=== PATIENT | female | born 1975 | race Two or more races ===

== ENCOUNTER 2023-02-02 06:10 | Day surgery (SDC) | payer OTHER ==
[2023-02-02] MEDS ORDERED: PROTONIX20 MG PO (08:13)
== END 2023-02-02 10:45 | disposition home or self-care (01) ==
LOC: AMB-ENDOS 06:10
PROVIDERS: ATTEND Surgery
DX: K29.70 Gastritis, unspecified, without bleeding (principal); B96.81 Helicobacter pylori [H. pylori] as the cause of diseases classified elsewhere; K44.9 Diaphragmatic hernia without obstruction or gangrene; R10.13 Epigastric pain; E66.09 Other obesity due to excess calories; Z20.822 Contact with and (suspected) exposure to COVID-19; Z88.6 Allergy status to analgesic agent